=== PATIENT | male | born 1970 | race African-American/Black ===

== ENCOUNTER 2021-06-30 04:22 | Emergency (ER) | payer MEDICAID ==
[~2021-06-30] VITALS: Ht 190.5 cm; Wt 105.0 kg
[2021-06-30] MEDS ORDERED: ASPIRIN 81MG TABLET PO ONE (05:00)
[2021-06-30] MEDS ORDERED: NITROGLYCERIN 0.4MG TABLET SL SL PRN (05:00)
[2021-06-30 05:20] LABS: BASOPHILS % 0.7 % (0.0-2.0); EOSINOPHILS % 2.4 % (0.0-5.0); HEMATOCRIT. 39.5 % (42.0-52.0); LYMPHOCYTES % 36.6 % (20.0-50.0); MEAN CORPUSCULAR HEMOGLOBIN 28.6 pg (28.0-32.0); MEAN CORPUSCULAR VOLUME 86.7 fL (80.0-94.0); MEAN PLATELET VOLUME 8.6 fl (7.4-10.4); MONOCYTES % 9.5 % (2.0-8.0); NEUTROPHILS % 50.8 % (40.0-76.0); PLATELET 236 x1000/uL (130-400); RED BLOOD CELL COUNT 4.56 mill/uL (4.7-6.1); RED CELL DISTRIBUTION WIDTH 14.1 % (11.6-14.6)
[2021-06-30 05:27] LABS: CHLORIDE 108 mEq/L (98-107)
[2021-06-30 10:00] VITALS: BP 131/68
[2021-06-30] MEDS ORDERED: ASPI-1497 MT (13:53)
[2021-06-30] MEDS ORDERED: METH-773 MT (13:53)
== END 2021-06-30 10:34 | disposition home or self-care (01) ==
LOC: ER 04:22
DX: R07.89 Other chest pain (principal)
CPT/HCPCS: 36415; 71045; 80053; 83880; 84484; 85025; 93005; 99285

== ENCOUNTER 2021-06-30 11:33 | Emergency (ER) | payer MEDICAID ==
[~2021-06-30] VITALS: Ht 190.5 cm; Wt 89.0 kg
[2021-06-30] MEDS ORDERED: KETOROLAC 60MG/2ML VIAL IM ONE (13:15)
[2021-06-30 13:17] LABS: BASOPHILS % 0.8 % (0.0-2.0); HEMATOCRIT. 41.8 % (42.0-52.0); HEMOGLOBIN. 13.5 g/dL (14.0-18.0); LYMPHOCYTES % 36.4 % (20.0-50.0); MEAN CORPUSCULAR HEMOGLOBIN 28.1 pg (28.0-32.0); MEAN CORPUSCULAR VOLUME 87.4 fL (80.0-94.0); MEAN PLATELET VOLUME 8.7 fl (7.4-10.4); MONOCYTES % 9.2 % (2.0-8.0); NEUTROPHILS % 50.6 % (40.0-76.0); PLATELET 255 x1000/uL (130-400); RED BLOOD CELL COUNT 4.78 mill/uL (4.7-6.1); RED CELL DISTRIBUTION WIDTH 13.8 % (11.6-14.6)
[2021-06-30 13:19] LABS: CHLORIDE 110 mEq/L (98-107)
[2021-06-30 13:37] VITALS: BP 138/83
[2021-06-30 13:46] LABS: *AMPHETAMINES SCREEN URINE NEGATIVE (NEGATIVE); *BARBITURATES SCREEN URINE NEGATIVE (NEGATIVE); METHADONE URINE SCREEN NEGATIVE (NEGATIVE); PHENCYCLIDINE URINE SCREEN NEGATIVE (NEGATIVE)
[2021-06-30 13:47] LABS: *BENZODIAZEPINES SCREEN URINE NEGATIVE (NEGATIVE); *COCAINE SCREEN URINE NEGATIVE (NEGATIVE); CANNABINOID URINE SCREEN NEGATIVE (NEGATIVE); OPIATES URINE SCREEN NEGATIVE (NEGATIVE)
[2021-06-30] MEDS ORDERED: ASPI-1497 MT (13:53)
[2021-06-30] MEDS ORDERED: METH-773 MT (13:53)
== END 2021-06-30 14:14 | disposition home or self-care (01) ==
LOC: ER 11:33
DX: R07.89 Other chest pain (principal); M54.12 Radiculopathy, cervical region
CPT/HCPCS: 36415; 80053; 80305; 84443; 84484; 85025; 93005; 96372; 99284; J1885